=== PATIENT | female | born 1990 | race Caucasian/White ===

== ENCOUNTER 2021-04-07 04:37 | Emergency (ER) | payer OTHER ==
[~2021-04-07 04:37] MED LIST: CLARITIN10 MG PO; OMNICEF 300 MG300 MG PO; TESSALON PERLE100 MG PO; ZOFRAN4 MG PO
[2021-04-07] MEDS ORDERED: NARCAN4 MG (05:51)
== END 2021-04-07 06:05 | disposition home or self-care (01) ==
LOC: ER1 04:37
DX: T40.1X1A Poisoning by heroin, accidental (unintentional), initial encounter (principal); Z90.89 Acquired absence of other organs; Z88.2 Allergy status to sulfonamides
CPT/HCPCS: 99284